=== PATIENT | male | born 1985 | race Caucasian/White ===

== ENCOUNTER 2016-06-12 22:30 | Emergency (ER) | payer OTHER ==
[~2016-06-12] VITALS: Ht 177.8 cm; Wt 77.3 kg
--- NOTE | 2016-06-12 22:41 | ERA ---
ER Documentation Chief Complaint Date/Time DATE: 06/12/16 TIME: 22:39 Chief Complaint HPI 30-year-old male history of underlying psychiatric illness who presents with auditory hallucinations. The patient states that he has been hearing voices. He denies any suicidal ideation but does note "significant depression ". The patient presents via EMS. He states that he ran out of his medications including Zoloft and Zyprexa. He has been out of these medications for approximately 1 week. He denies any suicidal ideation headache chest pain or shortness of breath. He does state that he used marijuana this evening. ROS All systems reviewed and are negative except as per history of present illness. Medications Home Meds Active Scripts Sertraline Hcl* (Zoloft*) 50 Mg Tablet, 50 MG PO DAILY, #30 TAB Prov:OSCAR HOLT MD 06/13/16 Olanzapine* (Zyprexa*) 10 Mg Tablet, 20 MG PO QHS, #30 TAB Prov:OSCAR HOLT MD 06/13/16 Reported Medications Sertraline Hcl* (Zoloft*) 50 Mg Tablet, 50 MG PO DAILY, #30 TAB 06/12/16 Olanzapine* (Zyprexa*) 20 Mg Tablet, 20 MG PO BID, #30 TAB 06/12/16 Allergies Allergies: Coded Allergies: risperidone (Verified Allergy, Unknown, 06/12/16) PMhx/Soc Medical and Surgical Hx: pt denies Medical Hx, pt denies Surgical Hx FmHx Family History: No diabetes Physical Exam Vitals Vital Signs Date Time Temp Pulse Resp B/P Pulse Ox O2 Delivery O2 Flow Rate FiO2 06/12/16 23:12 98.6 98 18 108/59 98 Physical Exam General: Disheveled and smells of marijuana Head: Normocephalic, atraumatic. Eyes: Pupils equally reactive, EOM intact ENT: Moist mucous membranes Neck: Supple, no lymphadenopathy Respiratory: Lungs clear bilaterally, no distress Cardiovascular: RRR, no murmurs, rubs, or gallops Abdominal: Soft, non-tender, non-distended, no peritoneal signs : Deferred MSK: No edema, no unilateral swelling, 5/5 strength Neurologic: Alert and oriented, moving all extremities, normal speech, no focal weakness, no cerebellar signs Skin: No rash Psych: Flat affect, auditory hallucinations, depressed mood, no suicidal ideation Result Diagram: 06/12/16229906/12/160 Results 24 hrs Laboratory Tests Test 06/12/16 23:00 Alanine Aminotransferase (ALT/SGPT) 33IU/L Albumin 3.2g/dl Albumin/Globulin Ratio 1.45 Alkaline Phosphatase 60IU/L Anion Gap 15 Aspartate Amino Transf (AST/SGOT) 28IU/L Basophils # 0.010^3/ul Basophils % 0.5% Blood Urea Nitrogen 16mg/dl Calcium Level 8.7mg/dl Carbon Dioxide Level 25mmol/L Chloride Level 106mmol/L Creatinine 0.86mg/dl Direct Bilirubin 0.00mg/dl Eosinophils # 0.110^3/ul Eosinophils % 0.6% Ethyl Alcohol Level < 10.0mg/dl Globulin 2.20g/dl Glucose Level 93mg/dl Hematocrit 43.1% Hemoglobin 14.6g/dl Indirect Bilirubin 0.3mg/dl Lymphocytes # 2.010^3/ul Lymphocytes % 22.7% Mean Corpuscular Hemoglobin 29.3pg Mean Corpuscular Hemoglobin Concent 33.7g/dl Mean Corpuscular Volume 86.8fl Mean Platelet Volume 9.4fl Monocytes # 0.410^3/ul Monocytes % 4.8% Neutrophils # 6.210^3/ul Neutrophils % 71.4% Nucleated Red Blood Cells # 0.010^3/ul Nucleated Red Blood Cells % 0.0/100WBC Platelet Count 75380^3/UL Potassium Level 3.9mmol/L Red Blood Count 4.9710^6/ul Red Cell Distribution Width 13.8% Sodium Level 142mmol/L Total Bilirubin 0.3mg/dl Total Protein 5.4g/dl Urine Amphetamines Screen Negative Urine Barbiturates Negative Urine Benzodiazepines Screen Negative Urine Cannabinoids Positive Urine Cocaine Screen Negative Urine Opiates Screen Negative White Blood Count 8.710^3/ul Procedures/MDM LAB INTERPRETATION: No acute process MEDICAL DECISION MAKING: The patient's presentation is consistent with underlying psychiatric illness and likely exacerbation of this illness and/or psychosis. I have a much lower clinical concern for delirium or acute organic pathology such as toxicologic, metabolic, ischemic, intracranial hemorrhage, infectious process. However, we must rule this out prior to relying a diagnosis of underlying psychiatric illness. The patient's workup will include medical screening examination, laboratory analysis, and diagnostic imaging such as EKG, chest x-ray or CT brain as indicated. If the patient's medical examination and laboratory analysis do not reveal acute organic pathology the patient will be medically cleared for psychiatric evaluation. ER COURSE: The patient's laboratory analysis, do not suggest an acute organic pathology. At this time I believe the patient's presentation is very consistent with underlying psychiatric illness. The patient is medically cleared for psychiatric evaluation. I am not convinced that the patient necessarily requires inpatient hospitalization however the patient requests to see a psychiatrist. He may benefit from voluntary placement. I kept the patient and/or family informed of laboratory and diagnostic imaging results throughout the emergency room course. CONSULTATION: Psychiatric consultation: Telemetry medicine psychiatry has been consulted on this case to evaluate the patient for possible acute psychiatric illness that would require inpatient hospitalization. Recommendation/Plan Medication Management please give patient zyprexa 20 mg po qhs for one month and zoloft 50 mg po qd for one month Follow-up/Disposition In my opinion,for this patient, outpatient care is the least restrictive option. Based on available evidence, this condition CAN be safely treated at a lower level of care effective today. Patient is stable without clear and convincing evidence of imminent danger due to mental illness that require acute inpatient psychiatric care as the least restrictive alternative. Please discharge patient with referral for follow up to a outpatient mental health clinic for psychotherapy and medication. MARIUM LEE MD Jun 13, 2016 02:56 The patient will be discharged from the emergency room with prescriptions as documented above. Departure Diagnosis: Primary Impression: Hallucinations Additional Impression: Medication refill Condition: Stable OSCAR HOLT MD Jun 12, 2016 22:41
[2016-06-12] MEDS ORDERED: OLAN20TA PO (22:45)
[2016-06-12] MEDS ORDERED: SERT50TA PO (22:46)
[2016-06-12 23:12] VITALS: Ht 177.8 cm; Wt 77.3 kg
[2016-06-12 23:49] LABS: BASOPHILS % 0.5 % (0.0-2.0); EOSINOPHILS # 0.1 10^3/ul (0.0-0.5); EOSINOPHILS % 0.6 % (0.0-7.0); HEMATOCRIT 43.1 % (42.0-52.0); HEMOGLOBIN 14.6 g/dl (14.0-18.0); LYMPHOCYTES % 22.7 % (15.0-51.0); MEAN CORPUSCULAR HEMOGLOBIN 29.3 pg (29.0-33.0); MEAN CORPUSCULAR HGB CONC 33.7 g/dl (32.0-37.0); MEAN CORPUSCULAR VOLUME 86.8 fl (82.0-101.0); MEAN PLATELET VOLUME 9.4 fl (7.4-10.4); MONOCYTE # 0.4 10^3/ul (0.3-0.9); MONOCYTES % 4.8 % (0.0-11.0); NEUTROPHIL # 6.2 10^3/ul (1.6-7.5); NEUTROPHILS % 71.4 % (39.0-77.0); PLATELET COUNT 190 10^3/UL (140-440); RED BLOOD COUNT 4.97 10^6/ul (4.70-6.10); RED CELL DISTRIBUTION WIDTH 13.8 % (11.5-14.5); UNCORRECTED WBC 8.7 10^3/ul (4.8-10.8); WHITE BLOOD COUNT 8.7 10^3/ul (4.8-10.8)
[2016-06-12 23:50] LABS: CONDITION 1
[2016-06-12 23:55] LABS: ALBUMIN 3.2 g/dl (3.3-4.9); CHLORIDE 106 mmol/L (97-110); POTASSIUM 3.9 mmol/L (3.5-5.1); SODIUM 142 mmol/L (135-144)
[2016-06-12 23:57] LABS: CREATININE 0.86 mg/dl (0.61-1.24)
[2016-06-12 23:58] LABS: ALANINE AMINOTRANSFERASE 33 IU/L (13-69); ALBUMIN/GLOBULIN RATIO 1.45; ALKALINE PHOSPHATASE 60 IU/L (42-121); ANION GAP 15 (8-16); ASPARTATE AMINO TRANSFERASE 28 IU/L (15-46); BILIRUBIN,INDIRECT 0.3 mg/dl (0-1.1); BILIRUBIN,TOTAL 0.3 mg/dl (0.2-1.3); BLOOD UREA NITROGEN 16 mg/dl (7-20); CALCIUM 8.7 mg/dl (8.4-10.2); CARBON DIOXIDE 25 mmol/L (21-31); GLUCOSE 93 mg/dl (70-220); TOTAL PROTEIN 5.4 g/dl (6.1-8.1)
[2016-06-13 00:09] LABS: ETHANOL < 10.0 mg/dl
[2016-06-13 01:09] LABS: BARBITURATES Negative (NEGATIVE); BENZODIAZEPINES Negative (NEGATIVE); COCAINE Negative (NEGATIVE); OPIATES Negative (NEGATIVE)
[2016-06-13 01:19] LABS: CANNABINOIDS Positive (NEGATIVE)
--- NOTE | 2016-06-13 02:57 | PSY ---
Date/Time of Note Date/Time of Note DATE: 06/13/16 TIME: 02:49 Psychiatric Subjective Eval Subjective Evaluation Patient location: emergency Chief Complaint: BIBA for pt hearing voices calling his name x 10 days, denies SI/HI Reason for consult: hallucination of hearing someone call his name. History of present illness patient is a 30 yo male with PPH Of schizophrenia who came to the ER due to feeling depressed and anxious, he has been off his medication for the past 10 days zoloft and zyprexa , he has been hearing voices , he has been feeling paranoid but denies any SI or HI, no drug use beside THC, he was kicked out from his sober living due to smoking THC and will have a apt tomorrow for housing. He feels safe to be discharged. Past psychiatric history past admission few month ago Hospitalization: no Family History denies Medical history as per record Allergies: Coded Allergies: risperidone (Verified Allergy, Unknown, 06/12/16) Substance Abuse Substance abuse history: Yes (thc) Prior substance abuse treatmen: No Social History Marital status: single Level of education: hs DPA/Conservatorship: No Occupation/Detention: ssi Psychiatric Objective Eval Review of Systems: Review of Systems: Not Applicable Physical Examination: Physical Examination: Applicable Sleep: Insomnia Appetite: Decreased Energy: Decreased Interest: Decreased Mental Status Examination: Appearance: Groomed Eye Contact: Good Speech: Clear AFFECT: Depressed Mood: Depressed Though Process: Linear Thought Content: Delusions Suicidal: No Homicidal: No On 72 hour hold: No Orientation: x3 Cognition: Alert Insight: Intact Judgement: Intact Attention Span: Intact Laboratory Results Laboratory Tests Test 06/12/16 23:00 Alanine Aminotransferase (ALT/SGPT) 33IU/L Albumin 3.2g/dl Albumin/Globulin Ratio 1.45 Alkaline Phosphatase 60IU/L Anion Gap 15 Aspartate Amino Transf (AST/SGOT) 28IU/L Basophils # 0.010^3/ul Basophils % 0.5% Blood Urea Nitrogen 16mg/dl Calcium Level 8.7mg/dl Carbon Dioxide Level 25mmol/L Chloride Level 106mmol/L Creatinine 0.86mg/dl Direct Bilirubin 0.00mg/dl Eosinophils # 0.110^3/ul Eosinophils % 0.6% Ethyl Alcohol Level < 10.0mg/dl Globulin 2.20g/dl Glucose Level 93mg/dl Hematocrit 43.1% Hemoglobin 14.6g/dl Indirect Bilirubin 0.3mg/dl Lymphocytes # 2.010^3/ul Lymphocytes % 22.7% Mean Corpuscular Hemoglobin 29.3pg Mean Corpuscular Hemoglobin Concent 33.7g/dl Mean Corpuscular Volume 86.8fl Mean Platelet Volume 9.4fl Monocytes # 0.410^3/ul Monocytes % 4.8% Neutrophils # 6.210^3/ul Neutrophils % 71.4% Nucleated Red Blood Cells # 0.010^3/ul Nucleated Red Blood Cells % 0.0/100WBC Platelet Count 93858^3/UL Potassium Level 3.9mmol/L Red Blood Count 4.9710^6/ul Red Cell Distribution Width 13.8% Sodium Level 142mmol/L Total Bilirubin 0.3mg/dl Total Protein 5.4g/dl Urine Amphetamines Screen Negative Urine Barbiturates Negative Urine Benzodiazepines Screen Negative Urine Cannabinoids Positive Urine Cocaine Screen Negative Urine Opiates Screen Negative White Blood Count 8.710^3/ul Assessment and Plan Assessment/Diagnosis [place] I: schizophrenia per hx [place] II: deferred [place] III: as per record [place] IV: poor social support [place] V: gaf 70 Recommendation/Plan Medication Management please give patient zyprexa 20 mg po qhs for one month and zoloft 50 mg po qd for one month Follow-up/Disposition In my opinion,for this patient, outpatient care is the least restrictive option. Based on available evidence, this condition CAN be safely treated at a lower level of care effective today. Patient is stable without clear and convincing evidence of imminent danger due to mental illness that require acute inpatient psychiatric care as the least restrictive alternative. Please discharge patient with referral for follow up to a outpatient mental health clinic for psychotherapy and medication. MARIUM LEE MD Jun 13, 2016 02:56
[2016-06-13] MEDS ORDERED: SERT50TA PO (03:16)
[2016-06-13] MEDS ORDERED: OLAN10TA7 PO (03:16)
[2016-06-13 03:28] VITALS: BP 117/69; PULSE 78; RESP 18; TEMP 98.1
== END 2016-06-13 03:28 | disposition home or self-care (01) ==
LOC: E/R 22:30
DX: R44.0 Auditory hallucinations (principal); Z76.0 Encounter for issue of repeat prescription
CPT/HCPCS: 80053; 80306; 80307; 85025; Z7502; Z7610; 99284

== ENCOUNTER 2017-01-29 01:07 | Emergency (ER) | payer OTHER ==
[~2017-01-29] VITALS: Ht 180.3 cm; Wt 67.0 kg
[~2017-01-29 01:07] MED LIST: OLAN10TA7 PO; OLAN20TA3 PO; SERT50TA PO
[2017-01-29 01:26] VITALS: Ht 180.3 cm; Wt 67.0 kg
[2017-01-29] MEDS ORDERED: OLANZAPINE (ODT) 5 MG TAB ODT STA (01:26)
[2017-01-29 02:20] LABS: BASOPHILS % 0.3 % (0.0-2.0); EOSINOPHILS % 0.1 % (0.0-7.0); HEMATOCRIT 44.6 % (42.0-52.0); HEMOGLOBIN 15.2 g/dl (14.0-18.0); LYMPHOCYTES % 18.2 % (15.0-51.0); MEAN CORPUSCULAR HEMOGLOBIN 30.3 pg (29.0-33.0); MEAN CORPUSCULAR HGB CONC 34.1 g/dl (32.0-37.0); MEAN CORPUSCULAR VOLUME 88.8 fl (82.0-101.0); MEAN PLATELET VOLUME 10.7 fl (7.4-10.4); MONOCYTE # 0.6 10^3/ul (0.3-0.9); MONOCYTES % 5.6 % (0.0-11.0); NEUTROPHILS % 75.4 % (39.0-77.0); PLATELET COUNT 188 10^3/UL (140-415); RED BLOOD COUNT 5.02 10^6/ul (4.70-6.10); RED CELL DISTRIBUTION WIDTH 13.8 % (11.5-14.5)
[2017-01-29 02:39] LABS: ALANINE AMINOTRANSFERASE 40 IU/L (13-69); ALBUMIN 3.9 g/dl (3.3-4.9); ALBUMIN/GLOBULIN RATIO 1.56; ALKALINE PHOSPHATASE 73 IU/L (42-121); ANION GAP 12 (8-16); ASPARTATE AMINO TRANSFERASE 41 IU/L (15-46); BILIRUBIN,INDIRECT 0.3 mg/dl (0-1.1); BILIRUBIN,TOTAL 0.3 mg/dl (0.2-1.3); BLOOD UREA NITROGEN 8 mg/dl (7-20); CALCIUM 9.1 mg/dl (8.4-10.2); CARBON DIOXIDE 26 mmol/L (21-31); CHLORIDE 106 mmol/L (97-110); CREATININE 0.81 mg/dl (0.61-1.24); GLUCOSE 101 mg/dl (70-220); POTASSIUM 4.3 mmol/L (3.5-5.1); SODIUM 140 mmol/L (135-144); TOTAL PROTEIN 6.4 g/dl (6.1-8.1)
[2017-01-29 02:42] LABS: ETHANOL < 10.0 mg/dl
[2017-01-29 02:42] LABS: ADD UMIC YES; UR ASCORBIC ACID NEGATIVE (NEGATIVE); UR BACTERIA FEW /HPF (NONE SEEN); UR BILIRUBIN (Dip) NEGATIVE (NEGATIVE); UR BLOOD (Dip) NEGATIVE (NEGATIVE); UR CLARITY CLEAR (CLEAR); UR COLOR YELLOW (YELLOW); UR GLUCOSE (Dip) NEGATIVE (NEGATIVE); UR KETONES (Dip) 1+ mg/dL (NEGATIVE); UR LEUKOCYTE ESTERASE (Dip) NEGATIVE Leu/ul (NEGATIVE); UR NITRITE (Dip) NEGATIVE (NEGATIVE); UR RBC 2 /HPF (0-5); UR SPECIFIC GRAVITY (Dip) 1.017 (1.003-1.030); UR TOTAL PROTEIN (Dip) 1+ mg/dl (NEGATIVE); UR UROBILINOGEN (Dip) 2+ mg/dL (NEGATIVE)
[2017-01-29 02:56] LABS: CANNABINOIDS Negative (NEGATIVE)
[2017-01-29 02:59] LABS: BARBITURATES Negative (NEGATIVE); BENZODIAZEPINES Negative (NEGATIVE); COCAINE Positive (NEGATIVE); OPIATES Negative (NEGATIVE)
--- NOTE | 2017-01-29 04:29 | ERA ---
ER Documentation Chief Complaint Date/Time DATE: 01/29/17 TIME: 04:27 Chief Complaint ran out of meds few days ago, anxious, scared, hearing voices NOS HPI This is a 31-year-old male who states that he is hearing voices. The patient states that he ran out of his medications and has not been taking them for at least a couple days. He states that he is feeling scared and anxious and that he is hearing voices talk to him. He denies any suicidal or homicidal thoughts. He denies any drug abuse. ROS All systems reviewed and are negative except as per history of present illness. Medications Home Meds Active Scripts Sertraline Hcl* (Zoloft*) 50 Mg Tablet, 50 MG PO DAILY, #30 TAB Prov:OSCAR HOLT MD 06/13/16 Olanzapine* (Zyprexa*) 10 Mg Tablet, 20 MG PO QHS, #30 TAB Prov:OSCAR HOLT MD 06/13/16 Reported Medications Sertraline Hcl* (Zoloft*) 50 Mg Tablet, 50 MG PO DAILY, #30 TAB 06/12/16 Olanzapine* (Zyprexa*) 20 Mg Tablet, 20 MG PO BID, #30 TAB 06/12/16 Allergies Allergies: Coded Allergies: risperidone (Verified Allergy, Unknown, 06/12/16) PMhx/Soc History of Surgery: No Anesthesia Reaction: No Hx Neurological Disorder: No Hx Respiratory Disorders: No Hx Cardiac Disorders: No Hx Psychiatric Problems: Yes (SCHIZOPHRENIA, DEPRESSION, ANXIETY) Hx Miscellaneous Medical Probl: Yes (scoliosis) Hx Alcohol Use: Yes (OCCASIONAL) Hx Substance Use: Yes (MARIJUANA, aderal, cocaine) Hx Tobacco Use: Yes Smoking Status: Current every day smoker FmHx Family History: No diabetes Physical Exam Vitals Vital Signs Date Time Temp Pulse Resp B/P Pulse Ox O2 Delivery O2 Flow Rate FiO2 01/29/17 01:26 98.6 125 20 150/76 100 Physical Exam General: Well developed, well nourished, no acute distress Head: Normocephalic, atraumatic Eyes: Pupils equally reactive, EOM intact ENT: Moist mucous membranes Neck: Supple, no lymphadenopathy Respiratory: Lungs clear bilaterally, no distress Cardiovascular: RRR, no murmurs, rubs, or gallops Abdominal: Soft, non-tender, non-distended, no peritoneal signs : Deferred MSK: No edema, no unilateral swelling, 5/5 strength Neurologic: Alert and oriented, moving all extremities, normal speech, no focal weakness, no cerebellar signs Skin: No rash Psych: Auditory hallucinations, poor insight, slightly bizarre affect Result Diagram: 01/29/17 0155 01/29/17 0155 Results 24 hrs Laboratory Tests Test 01/29/17 01:52 01/29/17 01:55 Urine Color YELLOW Urine Clarity CLEAR Urine pH 6.0 Urine Specific [place] 1.017 Urine Ketones 1+mg/dL Urine Nitrite NEGATIVEmg/dL Urine Bilirubin NEGATIVEmg/dL Urine Urobilinogen 2+mg/dL Urine Leukocyte Esterase NEGATIVELeu/ul Urine Microscopic RBC 2/HPF Urine Microscopic WBC 2/HPF Urine Bacteria FEW/HPF Urine Hemoglobin NEGATIVEmg/dL Urine Glucose NEGATIVEmg/dL Urine Total Protein 1+mg/dl Urine Opiates Screen Negative Urine Barbiturates Negative Urine Amphetamines Screen POSITIVE Urine Benzodiazepines Screen Negative Urine Cocaine Screen Positive Urine Cannabinoids Negative White Blood Count 11.010^3/ul Red Blood Count 5.0210^6/ul Hemoglobin 15.2g/dl Hematocrit 44.6% Mean Corpuscular Volume 88.8fl Mean Corpuscular Hemoglobin 30.3pg Mean Corpuscular Hemoglobin Concent 34.1g/dl Red Cell Distribution Width 13.8% Platelet Count 10357^3/UL Mean Platelet Volume 10.7fl Neutrophils % 75.4% Lymphocytes % 18.2% Monocytes % 5.6% Eosinophils % 0.1% Basophils % 0.3% Nucleated Red Blood Cells % 0.0/100WBC Neutrophils # (Manual) 8.310^3/ul Lymphocytes # 2.010^3/ul Monocytes # 0.610^3/ul Eosinophils # 0.010^3/ul Basophils # 0.010^3/ul Nucleated Red Blood Cells # 0.010^3/ul Sodium Level 140mmol/L Potassium Level 4.3mmol/L Chloride Level 106mmol/L Carbon Dioxide Level 26mmol/L Anion Gap 12 Blood Urea Nitrogen 8mg/dl Creatinine 0.81mg/dl Glucose Level 101mg/dl Calcium Level 9.1mg/dl Total Bilirubin 0.3mg/dl Direct Bilirubin 0.00mg/dl Indirect Bilirubin 0.3mg/dl Aspartate Amino Transf (AST/SGOT) 41IU/L Alanine Aminotransferase (ALT/SGPT) 40IU/L Alkaline Phosphatase 73IU/L Total Protein 6.4g/dl Albumin 3.9g/dl Globulin 2.50g/dl Albumin/Globulin Ratio 1.56 Ethyl Alcohol Level < 10.0mg/dl Current Medications Medications (Trade) Dose Ordered Sig/Eriberto Route PRN Reason Start Time Stop Time Status Last Admin Dose Admin Olanzapine (Zyprexa Zydis) 10 mg ONCE STAT ODT 01/29/17 01:26 01/29/17 01:29 DC 01/29/17 02:06 Procedures/MDM LAB INTERPRETATION: Positive for amphetamines and cocaine MEDICAL DECISION MAKING: The patient's presentation is consistent with underlying psychiatric illness and likely exacerbation of this illness and/or psychosis. I have a much lower clinical concern for delirium or acute organic pathology such as toxicologic, metabolic, ischemic, intracranial hemorrhage, infectious process. However, we must rule this out prior to relying a diagnosis of underlying psychiatric illness. The patient's workup will include medical screening examination, laboratory analysis, and diagnostic imaging such as EKG, chest x-ray or CT brain as indicated. If the patient's medical examination and laboratory analysis do not reveal acute organic pathology the patient will be medically cleared for psychiatric evaluation. ER COURSE: Zyprexa 10 mg p.o. provided The patient's laboratory analysis, diagnostic imaging do not suggest an acute organic pathology. At this time I believe the patient's presentation is very consistent with underlying psychiatric illness. The patient is medically cleared for psychiatric evaluation. I kept the patient and/or family informed of laboratory and diagnostic imaging results throughout the emergency room course. CONSULTATION: Psychiatric consultation: Telemetry medicine psychiatry has been consulted on this case to evaluate the patient for possible acute psychiatric illness that would require inpatient hospitalization. DISPOSITION PLAN: Pending psychiatric evaluation Departure Diagnosis: Primary Impression: Polysubstance abuse Additional Impression: Auditory hallucinations Condition: Stable OSCAR HOLT MD Jan 29, 2017 04:29
--- NOTE | 2017-01-29 05:25 | PSY ---
Date/Time of Note Date/Time of Note DATE: 01/29/17 TIME: 05:17 Psychiatric Subjective Eval Subjective Evaluation Patient location: emergency Chief Complaint: ran out of meds few days ago, anxious, scared, hearing voices NOS Reason for consult: HALLUCINATIONS History of present illness Patient is a 31 yo male with PPH Of bipolar do and amphetamine abuse who came to the ER due to 48 hr of worsening psychosis, including hearing voices and feeling paranoid, he states that he used methamphetamine and cocaine 2 days ago and has been feeling confused since, he has been having racing thoughts , feeling depressed , hopeless and helpless because he thinks that he is going to get hurt because the voices are telling him that people are after him, he was given zyprexa in the ER but still scared to go home and psychotic, he states that he does not want to be discharged because he is worried about his safety and the safety of others. he has been feeling very anxious and irritable for 24h , unable to sleep for 24hr denies any si or hi. , Past psychiatric history past suicidal attempt yes past medication zoloft and zyprexa Medical history Problems Medical Problems: (1) Auditory hallucinations Status: Acute (2) Hallucinations Status: Acute (3) Medication refill Status: Acute (4) Polysubstance abuse Status: Acute Allergies: Coded Allergies: risperidone (Verified Allergy, Unknown, 06/12/16) Substance Abuse Substance use: No known substance abuse Substance abuse history: Yes (amphetamine cocain e) Prior substance abuse treatmen: No Social History Marital status: single Level of education: HIGH SCHOOL DPA/Conservatorship: No Occupation/Custodial: [employer] Psychiatric Objective Eval Review of Systems: Review of Systems: Not Applicable Physical Examination: Physical Examination: Applicable Sleep: Insomnia Appetite: Decreased Energy: Decreased Interest: Decreased Mental Status Examination: Appearance: Disheveled Eye Contact: Fair Behavior: Cooperative Speech: Clear AFFECT: Depressed Mood: Anxious Though Process: Linear Thought Content: Hallucinations Suicidal: No Homicidal: No On 72 hour hold: No Orientation: x2 Cognition: Alert Insight: Impared Judgement: Impared Attention Span: Distractible Laboratory Results Laboratory Tests Test 01/29/17 01:52 01/29/17 01:55 Urine Color YELLOW Urine Clarity CLEAR Urine pH 6.0 Urine Specific [place] 1.017 Urine Ketones 1+mg/dL Urine Nitrite NEGATIVEmg/dL Urine Bilirubin NEGATIVEmg/dL Urine Urobilinogen 2+mg/dL Urine Leukocyte Esterase NEGATIVELeu/ul Urine Microscopic RBC 2/HPF Urine Microscopic WBC 2/HPF Urine Bacteria FEW/HPF Urine Hemoglobin NEGATIVEmg/dL Urine Glucose NEGATIVEmg/dL Urine Total Protein 1+mg/dl Urine Opiates Screen Negative Urine Barbiturates Negative Urine Amphetamines Screen POSITIVE Urine Benzodiazepines Screen Negative Urine Cocaine Screen Positive Urine Cannabinoids Negative White Blood Count 11.010^3/ul Red Blood Count 5.0210^6/ul Hemoglobin 15.2g/dl Hematocrit 44.6% Mean Corpuscular Volume 88.8fl Mean Corpuscular Hemoglobin 30.3pg Mean Corpuscular Hemoglobin Concent 34.1g/dl Red Cell Distribution Width 13.8% Platelet Count 89202^3/UL Mean Platelet Volume 10.7fl Neutrophils % 75.4% Lymphocytes % 18.2% Monocytes % 5.6% Eosinophils % 0.1% Basophils % 0.3% Nucleated Red Blood Cells % 0.0/100WBC Neutrophils # (Manual) 8.310^3/ul Lymphocytes # 2.010^3/ul Monocytes # 0.610^3/ul Eosinophils # 0.010^3/ul Basophils # 0.010^3/ul Nucleated Red Blood Cells # 0.010^3/ul Sodium Level 140mmol/L Potassium Level 4.3mmol/L Chloride Level 106mmol/L Carbon Dioxide Level 26mmol/L Anion Gap 12 Blood Urea Nitrogen 8mg/dl Creatinine 0.81mg/dl Glucose Level 101mg/dl Calcium Level 9.1mg/dl Total Bilirubin 0.3mg/dl Direct Bilirubin 0.00mg/dl Indirect Bilirubin 0.3mg/dl Aspartate Amino Transf (AST/SGOT) 41IU/L Alanine Aminotransferase (ALT/SGPT) 40IU/L Alkaline Phosphatase 73IU/L Total Protein 6.4g/dl Albumin 3.9g/dl Globulin 2.50g/dl Albumin/Globulin Ratio 1.56 Ethyl Alcohol Level < 10.0mg/dl Assessment and Plan Assessment/Diagnosis [place] I: psychosis nos amphetamine abuse [place] II: deferred [place] III: as per record [place] IV: poor social support [place] V: gaf 25 Recommendation/Plan Medication Management zyprexa 10 mg po bid Follow-up/Disposition vol admission for GD Patient cannot be treated at a lower level of care today due to GRAVE DISABLITY including an inability to carry out basic transactions necessary for survival in these areas and as evidenced by these behaviors: - Unable to seek out Food, Unable to seek out Clothing, Unable to seek out Penitentiary, Severe Financial Incompetence, Severe Failure to Adjust in the Community, Severe Incompetence in Regards to Health Self-Management - Patient is labile,intrusive and socially inappropriate with personal boundaries - Confused, disoriented and grossly unable to distinguish reality from illusion -Requires near constant monitoring to prevent inadvertent danger to self and others -No family members willing and able to care for patient in the community with this mental state MARIUM LEE MD Jan 29, 2017 05:25
--- NOTE | 2017-01-29 08:53 | PSY ---
Date/Time of Note Date/Time of Note DATE: 01/29/17 TIME: 08:49 Psychiatric Subjective Eval Consent Pt consented to telemedicine: Yes Subjective Evaluation Patient location: emergency Chief Complaint: ran out of meds few days ago, anxious, scared, hearing voices NOS Reason for consult: HALLUCINATIONS History of present illness Patient is a 31 yo male with PPH Of bipolar do and amphetamine abuse who came to the ER due to 48 hr of worsening psychosis, including hearing voices and feeling paranoid, he was seen by Dr britton and reproted to her, that he used methamphetamine and cocaine 2 days ago and has been feeling confused since, he has been having racing thoughts , feeling depressed , hopeless and helpless because he thinks that he is going to get hurt because the voices are telling him that people are after him, he was given zyprexa in the ER and now he is calmer and denies AH or Vh, denies paranoia; he says he still has Zyprexa at his soober living and wants to be discharged. He denies SI or HI. Past psychiatric history prior inpt Hospitalization: Suicidal Attempt(s) Family History denies Medical history Problems Medical Problems: (1) Auditory hallucinations Status: Acute (2) Hallucinations Status: Acute (3) Medication refill Status: Acute (4) Polysubstance abuse Status: Acute Allergies: Coded Allergies: risperidone (Verified Allergy, Unknown, 06/12/16) Substance Abuse Substance abuse history: Yes Prior substance abuse treatmen: Yes Social History Marital status: single Level of education: HIGH SCHOOL DPA/Conservatorship: No Occupation/Prison: [employer] Psychiatric Objective Eval Mental Status Examination: Appearance: Disheveled Eye Contact: Good Psychomotor Activity: Normal Behavior: Cooperative Speech: Clear AFFECT: Appropriate Mood: Anxious Though Process: Linear Thought Content: Normal Suicidal: No Homicidal: No On 72 hour hold: No Orientation: x4 Insight: Impared Judgement: Impared Laboratory Results Laboratory Tests Test 01/29/17 01:52 01/29/17 01:55 Urine Color YELLOW Urine Clarity CLEAR Urine pH 6.0 Urine Specific [place] 1.017 Urine Ketones 1+mg/dL Urine Nitrite NEGATIVEmg/dL Urine Bilirubin NEGATIVEmg/dL Urine Urobilinogen 2+mg/dL Urine Leukocyte Esterase NEGATIVELeu/ul Urine Microscopic RBC 2/HPF Urine Microscopic WBC 2/HPF Urine Bacteria FEW/HPF Urine Hemoglobin NEGATIVEmg/dL Urine Glucose NEGATIVEmg/dL Urine Total Protein 1+mg/dl Urine Opiates Screen Negative Urine Barbiturates Negative Urine Amphetamines Screen POSITIVE Urine Benzodiazepines Screen Negative Urine Cocaine Screen Positive Urine Cannabinoids Negative White Blood Count 11.010^3/ul Red Blood Count 5.0210^6/ul Hemoglobin 15.2g/dl Hematocrit 44.6% Mean Corpuscular Volume 88.8fl Mean Corpuscular Hemoglobin 30.3pg Mean Corpuscular Hemoglobin Concent 34.1g/dl Red Cell Distribution Width 13.8% Platelet Count 75861^3/UL Mean Platelet Volume 10.7fl Neutrophils % 75.4% Lymphocytes % 18.2% Monocytes % 5.6% Eosinophils % 0.1% Basophils % 0.3% Nucleated Red Blood Cells % 0.0/100WBC Neutrophils # (Manual) 8.310^3/ul Lymphocytes # 2.010^3/ul Monocytes # 0.610^3/ul Eosinophils # 0.010^3/ul Basophils # 0.010^3/ul Nucleated Red Blood Cells # 0.010^3/ul Sodium Level 140mmol/L Potassium Level 4.3mmol/L Chloride Level 106mmol/L Carbon Dioxide Level 26mmol/L Anion Gap 12 Blood Urea Nitrogen 8mg/dl Creatinine 0.81mg/dl Glucose Level 101mg/dl Calcium Level 9.1mg/dl Total Bilirubin 0.3mg/dl Direct Bilirubin 0.00mg/dl Indirect Bilirubin 0.3mg/dl Aspartate Amino Transf (AST/SGOT) 41IU/L Alanine Aminotransferase (ALT/SGPT) 40IU/L Alkaline Phosphatase 73IU/L Total Protein 6.4g/dl Albumin 3.9g/dl Globulin 2.50g/dl Albumin/Globulin Ratio 1.56 Ethyl Alcohol Level < 10.0mg/dl Assessment and Plan Assessment/Diagnosis [place] I: Amphetamine induced psychosis [place] II: defered [place] III: NAD [place] IV: lives in a sober living [place] V: 39 Recommendation/Plan Medication Management please rx zyprexa 20 mg #10 one poqhs Psychotherapy 12 step Pt. Caregiver/Family Education na Follow-up/Disposition pt can be released to his sober living; he i snot holdable; he ball shave outpt follow up. [id number] Recommendation: ANGELA HULL MD Jan 29, 2017 08:53
--- NOTE | 2017-01-29 09:27 | EN ---
Date/Time of Note Date/Time of Note DATE: 01/29/17 TIME: 09:24 ER Progress Note This patient was signed out to me by Dr. Storm at 6 AM on January 29, 2017. Briefly this is a patient who was found to have methamphetamines in his system who had described hallucinations. He requested a voluntary admission to a psychiatric unit and he was pending placement. Upon waking this morning, the patient no longer wish to be placed. He was reevaluated by the tele- psychiatrist he felt that he was appropriate for discharge. Upon my evaluation, the patient is not suicidal or homicidal. He denied any current hallucinations. He will be discharged with a prescription for Zyprexa. He needs follow-up with his primary care doctor. It was also recommended that he go through a 12-step program. He will be given precautions with which to return to the emergency department. ANNEL URIAS MD Jan 29, 2017 09:27
[2017-01-29] MEDS ORDERED: OLAN20TA3 PO (09:33)
[2017-01-29] MEDS ORDERED: OLAN10VI3 IM (09:33)
[2017-01-29 09:46] VITALS: BP 128/68; PULSE 68; RESP 18
== END 2017-01-29 09:50 | disposition home or self-care (01) ==
LOC: E/R 01:07
DX: F15.10 Other stimulant abuse, uncomplicated (principal); F14.10 Cocaine abuse, uncomplicated; F17.210 Nicotine dependence, cigarettes, uncomplicated
CPT/HCPCS: 36415; 80053; 80306; 80307; 81001; 85025; Z7502; Z7610; 99283